=== PATIENT | female | born 1960 | race Caucasian/White ===

== ENCOUNTER → 2020-03-04 06:00 | Outpatient (REF) | payer MEDICAID, SELFPAY | LOC: OLS.ACW200 06:00 | PROVIDERS: Referring Provider Family Medicine; Visit Provider Family Medicine | DX: Z11.59 Encounter for screening for other viral diseases (principal) | CPT/HCPCS: 87635; U0003 ==

== ENCOUNTER → 2020-03-06 05:00 | Outpatient (REF) | payer MEDICAID, SELFPAY ==
[2020-03-06 09:00] LABS: Hematocrit 38.5 % (37-47); Hemoglobin 12.3 g/dL (12.0-15.0); Mean Corp Hgb Conc 31.9 g/dL (32-36); Mean Corpuscular Hgb 30.7 pg (27.0-32.0); Mean Platelet Vol. 10.4 fl (6.2-12.0); Platelet Count 404 K/mm3 (150-450); RBC Distribution Width SD 45.5 fl (35.1-43.9); Red Blood Count 4.01 M/mm3 (4.2-5.4); White Blood Count 5.2 K/mm3 (4.4-11.0)
[2020-03-06 09:27] LABS: ALB/GLOB Ratio 0.8 RATIO (0.9-2.4); AST(SGOT) 24 U/L (15-37); Alanine Aminotransfer ALT/SGPT 37 U/L (13-56); Albumin, Serum 3.3 g/dL (3.2-5.0); Alkaline Phosphatase 108 U/L (45-117); Anion Gap 6 (5-15); BUN 15 mg/dL (7-18); BUN/Creat Ratio 27.5 RATIO (10-20); Calcium,Total 9.3 mg/dL (8.5-10.1); Chloride 102 mmol/L (98-107); Creatinine, Serum 0.54 mg/dL (0.55-1.02); EST Glomerular Filtration Rate 121 mL/min (>60); Est Glom Filt Rate - Afr Amer 146 mL/min (>60); Globulin 3.9 g/dL (2.2-4.2); Glucose 80 mg/dL (74-106); Potassium 3.1 mmol/L (3.5-5.1); Protein, Total 7.2 g/dL (6.4-8.2); Sodium Level 141 mmol/L (136-145); Thyroid Stim Hormone (TSH) 1.04 uIU/mL (0.358-3.74)
[2020-03-06 09:42] LABS: Vitamin D,25 Hydroxy 32.1 ng/mL
== END ==
LOC: OLS.ACW200 05:00
PROVIDERS: PCP Family Medicine; Referring Provider Family Medicine; Visit Provider Family Medicine
DX: S06.300D Unspecified focal traumatic brain injury without loss of consciousness, subsequent encounter (principal); W19.XXXD Unspecified fall, subsequent encounter
CPT/HCPCS: 36415; 80053; 82306; 83735; 84443; 85027

== ENCOUNTER → 2020-04-04 10:57 | Outpatient (REF) | payer MEDICAID, SELFPAY | LOC: OLS.ACW100 10:57 | PROVIDERS: PCP Family Medicine; Visit Provider Family Medicine | DX: Z03.818 Encounter for observation for suspected exposure to other biological agents ruled out (principal) | CPT/HCPCS: 87635; U0003 ==

== ENCOUNTER → 2020-04-10 11:47 | Outpatient (REF) | payer MEDICAID, SELFPAY | LOC: OLS.ACW100 11:47 | PROVIDERS: Referring Provider Family Medicine; Visit Provider Family Medicine | DX: Z03.818 Encounter for observation for suspected exposure to other biological agents ruled out (principal) | CPT/HCPCS: 87635; U0003 ==

== ENCOUNTER → 2020-05-28 12:50 | Outpatient (REF) | payer MEDICAID, SELFPAY | LOC: OLS.ACW100 12:50 | PROVIDERS: Referring Provider Family Medicine; Visit Provider Family Medicine | DX: Z03.818 Encounter for observation for suspected exposure to other biological agents ruled out (principal) | CPT/HCPCS: 87635; U0003 ==

== ENCOUNTER → 2020-08-05 10:00 | Outpatient (REF) | payer MEDICAID, SELFPAY ==
[2020-08-05 12:57] LABS: Cholesterol 204 mg/dL (200); High Density Lipoprotein 75 mg/dL; Triglycerides 98 mg/dL; Very Low Density Lipoprotein 20 mg/dL (5-40)
== END ==
LOC: OLS.ACW100 10:00
PROVIDERS: Referring Provider Family Medicine; Visit Provider Family Medicine
DX: I10 Essential (primary) hypertension (principal); G40.909 Epilepsy, unspecified, not intractable, without status epilepticus
CPT/HCPCS: 36415; 80061

== ENCOUNTER → 2020-08-15 05:00 | Outpatient (REF) | payer MEDICAID, SELFPAY ==
[2020-08-15 08:26] LABS: Cholesterol 145 mg/dL (200); High Density Lipoprotein 75 mg/dL; Triglycerides 92 mg/dL; Very Low Density Lipoprotein 18 mg/dL (5-40)
== END ==
LOC: OLS.ACW100 05:00
PROVIDERS: Referring Provider Family Medicine; Visit Provider Family Medicine
DX: S06.6X0D Traumatic subarachnoid hemorrhage without loss of consciousness, subsequent encounter (principal); W19.XXXD Unspecified fall, subsequent encounter
CPT/HCPCS: 36415; 80061

== ENCOUNTER → 2020-08-26 05:00 | Outpatient (REF) | payer MEDICAID, SELFPAY ==
[2020-08-26 07:43] LABS: Hematocrit 37.3 % (37-47); Hemoglobin 11.9 g/dL (12.0-15.0); Mean Corp Hgb Conc 31.9 g/dL (32-36); Mean Corpuscular Hgb 31.1 pg (27.0-32.0); Mean Corpuscular Volume 97.4 fL (81-99); Mean Platelet Vol. 9.9 fl (6.2-12.0); Platelet Count 375 K/mm3 (150-450); RBC Distribution Width CV 13.5 % (11.6-14.6); RBC Distribution Width SD 48.9 fl (35.1-43.9); Red Blood Count 3.83 M/mm3 (4.2-5.4); White Blood Count 7.3 K/mm3 (4.4-11.0)
[2020-08-26 08:17] LABS: ALB/GLOB Ratio 0.9 RATIO (0.9-2.4); AST(SGOT) 93 U/L (15-37); Alanine Aminotransfer ALT/SGPT 176 U/L (13-56); Albumin, Serum 3.2 g/dL (3.2-5.0); Alkaline Phosphatase 82 U/L (45-117); Anion Gap 4 (5-15); BUN 20 mg/dL (7-18); BUN/Creat Ratio 35.3 RATIO (10-20); Calcium,Total 9.1 mg/dL (8.5-10.1); Chloride 107 mmol/L (98-107); Creatinine, Serum 0.57 mg/dL (0.55-1.02); EST Glomerular Filtration Rate 115 mL/min (>60); Est Glom Filt Rate - Afr Amer 139 mL/min (>60); Globulin 3.7 g/dL (2.2-4.2); Glucose 102 mg/dL (74-106); Potassium 3.5 mmol/L (3.5-5.1); Protein, Total 6.9 g/dL (6.4-8.2); Sodium Level 143 mmol/L (136-145)
[2020-09-01 07:31] LABS: KEPPRA (LEVETIRACETAM) 15.3 ug/mL (10.0-40.0)
== END ==
LOC: OLS.ACW100 05:00
PROVIDERS: Referring Provider Family Medicine; Visit Provider Family Medicine
DX: S06.6X0D Traumatic subarachnoid hemorrhage without loss of consciousness, subsequent encounter (principal); W19.XXXD Unspecified fall, subsequent encounter
CPT/HCPCS: 36415; 80053; 80177; 85027

== ENCOUNTER → 2020-11-10 05:00 | Outpatient (REF) | payer MEDICAID, SELFPAY ==
[2020-11-10 08:16] LABS: Cholesterol 141 mg/dL (200); High Density Lipoprotein 67 mg/dL; Triglycerides 100 mg/dL; Very Low Density Lipoprotein 20 mg/dL (5-40)
== END ==
LOC: OLS.ACW100 05:00
PROVIDERS: Referring Provider Family Medicine; Visit Provider Family Medicine
DX: S06.6X0D Traumatic subarachnoid hemorrhage without loss of consciousness, subsequent encounter (principal); W19.XXXD Unspecified fall, subsequent encounter
CPT/HCPCS: 36415; 80061

== ENCOUNTER → 2021-05-12 05:00 | Outpatient (REF) | payer MEDICAID, SELFPAY ==
[2021-05-12 08:58] LABS: Hematocrit 37.1 % (37-47); Hemoglobin 11.9 g/dL (12.0-15.0); Mean Corp Hgb Conc 32.1 g/dL (32-36); Mean Corpuscular Hgb 30.4 pg (27.0-32.0); Mean Corpuscular Volume 94.9 fL (81-99); Mean Platelet Vol. 10.3 fl (6.2-12.0); Platelet Count 368 K/mm3 (150-450); RBC Distribution Width CV 12.8 % (11.6-14.6); RBC Distribution Width SD 44.1 fl (35.1-43.9); Red Blood Count 3.91 M/mm3 (4.2-5.4); White Blood Count 6.6 K/mm3 (4.4-11.0)
[2021-05-12 09:22] LABS: Vitamin D,25 Hydroxy 33.3 ng/mL
[2021-05-12 09:26] LABS: ALB/GLOB Ratio 0.6 RATIO (0.9-2.4); AST(SGOT) 50 U/L (15-37); Alanine Aminotransfer ALT/SGPT 87 U/L (13-56); Albumin, Serum 2.6 g/dL (3.2-5.0); Alkaline Phosphatase 100 U/L (45-117); Anion Gap 5 (5-15); BUN 15 mg/dL (7-18); BUN/Creat Ratio 30.3 RATIO (10-20); Bilirubin, Direct 0.11 mg/dL (0.00-0.30); Chloride 103 mmol/L (98-107); Cholesterol 107 mg/dL (200); EST Glomerular Filtration Rate 134 mL/min (>60); Est Glom Filt Rate - Afr Amer 162 mL/min (>60); Globulin 4.3 g/dL (2.2-4.2); Glucose 91 mg/dL (74-106); High Density Lipoprotein 58 mg/dL; Magnesium 1.8 mg/dL (1.6-2.6); Potassium 3.3 mmol/L (3.5-5.1); Protein, Total 6.9 g/dL (6.4-8.2); Sodium Level 138 mmol/L (136-145); Thyroid Stim Hormone (TSH) 1.01 uIU/mL (0.358-3.74); Triglycerides 54 mg/dL; Very Low Density Lipoprotein 11 mg/dL (5-40)
[2021-05-14 14:10] LABS: Lamotrigine (Lamictal) Level 7.3 ug/mL (2.0-20.0)
== END ==
LOC: OLS.ACW100 05:00
PROVIDERS: Visit Provider Family Medicine
DX: S06.6X0D Traumatic subarachnoid hemorrhage without loss of consciousness, subsequent encounter (principal); W19.XXXD Unspecified fall, subsequent encounter
CPT/HCPCS: 36415; 80053; 80061; 82248; 82306; 82542; 83735; 84443; 85027

== ENCOUNTER → 2021-09-03 | Outpatient (REF) | payer MEDICARE, MEDICAID, SELFPAY ==
[2021-09-03 09:22] LABS: Hematocrit 37.1 % (37-47); Hemoglobin 12.4 g/dL (12.0-15.0); Mean Corp Hgb Conc 33.4 g/dL (32-36); Mean Corpuscular Hgb 30.9 pg (27.0-32.0); Mean Corpuscular Volume 92.5 fL (81-99); Mean Platelet Vol. 10.5 fl (6.2-12.0); Platelet Count 401 K/mm3 (150-450); RBC Distribution Width CV 13.2 % (11.6-14.6); RBC Distribution Width SD 45.2 fl (35.1-43.9); Red Blood Count 4.01 M/mm3 (4.2-5.4); White Blood Count 7.5 K/mm3 (4.4-11.0)
[2021-09-03 09:47] LABS: AST(SGOT) 26 U/L (15-37); Alanine Aminotransfer ALT/SGPT 33 U/L (13-56); Albumin, Serum 3.1 g/dL (3.2-5.0); Alkaline Phosphatase 101 U/L (45-117); Anion Gap 7 (5-15); BUN 14 mg/dL (7-18); BUN/Creat Ratio 27.3 RATIO (10-20); Calcium,Total 9.1 mg/dL (8.5-10.1); Chloride 104 mmol/L (98-107); Cholesterol 125 mg/dL (200); Creatinine, Serum 0.51 mg/dL (0.55-1.02); EST Glomerular Filtration Rate 129 mL/min (>60); Est Glom Filt Rate - Afr Amer 156 mL/min (>60); Globulin 4.2 g/dL (2.2-4.2); Glucose 99 mg/dL (74-106); High Density Lipoprotein 60 mg/dL; Potassium 3.5 mmol/L (3.5-5.1); Protein, Total 7.3 g/dL (6.4-8.2); Sodium Level 139 mmol/L (136-145); Triglycerides 65 mg/dL; Very Low Density Lipoprotein 13 mg/dL (5-40)
== END | disposition home or self-care (01) ==
LOC: OLS.ACW100 04:00
PROVIDERS: Visit Provider Family Medicine
DX: S06.300D Unspecified focal traumatic brain injury without loss of consciousness, subsequent encounter (principal); S06.6X0D Traumatic subarachnoid hemorrhage without loss of consciousness, subsequent encounter; W19.XXXD Unspecified fall, subsequent encounter
CPT/HCPCS: 36415; 80048; 80061; 80076; 85027

== ENCOUNTER → 2021-11-12 | Outpatient (REF) | payer MEDICARE, MEDICAID, SELFPAY ==
[2021-11-17 17:07] LABS: KEPPRA (LEVETIRACETAM) 32.5 ug/mL (10.0-40.0)
[2021-11-18 08:45] LABS: Lamotrigine (Lamictal) Level 8.7 ug/mL (2.0-20.0)
== END | disposition home or self-care (01) ==
LOC: OLS.ACW100 05:00
PROVIDERS: Visit Provider Family Medicine
DX: G40.909 Epilepsy, unspecified, not intractable, without status epilepticus (principal); F32.9 Major depressive disorder, single episode, unspecified; S06.300D Unspecified focal traumatic brain injury without loss of consciousness, subsequent encounter; S06.6X0D Traumatic subarachnoid hemorrhage without loss of consciousness, subsequent encounter; W19.XXXD Unspecified fall, subsequent encounter
CPT/HCPCS: 36415; 80177; 82542

== ENCOUNTER → 2022-02-04 | Outpatient (REF) | payer MEDICARE, MEDICAID, SELFPAY ==
[2022-02-04 10:23] LABS: Hematocrit 34.9 % (37-47); Hemoglobin 11.2 g/dL (12.0-15.0); Mean Corp Hgb Conc 32.1 g/dL (32-36); Mean Corpuscular Hgb 29.8 pg (27.0-32.0); Mean Corpuscular Volume 92.8 fL (81-99); Mean Platelet Vol. 10.7 fl (6.2-12.0); Platelet Count 384 K/mm3 (150-450); RBC Distribution Width CV 14.2 % (11.6-14.6); RBC Distribution Width SD 48.2 fl (35.1-43.9); Red Blood Count 3.76 M/mm3 (4.2-5.4); White Blood Count 7.2 K/mm3 (4.4-11.0)
[2022-02-04 10:59] LABS: Vitamin D,25 Hydroxy 33.1 ng/mL
[2022-02-04 11:17] LABS: ALB/GLOB Ratio 0.7 RATIO (0.9-2.4); AST(SGOT) 26 U/L (15-37); Alanine Aminotransfer ALT/SGPT 34 U/L (13-56); Albumin, Serum 2.8 g/dL (3.2-5.0); Alkaline Phosphatase 92 U/L (45-117); Anion Gap 8 (5-15); BUN 13 mg/dL (7-18); BUN/Creat Ratio 26.2 RATIO (10-20); Bilirubin, Direct 0.09 mg/dL (0.00-0.30); Calcium,Total 9.1 mg/dL (8.5-10.1); Chloride 105 mmol/L (98-107); Cholesterol 113 mg/dL (200); EST Glomerular Filtration Rate 134 mL/min (>60); Est Glom Filt Rate - Afr Amer 162 mL/min (>60); Globulin 4.2 g/dL (2.2-4.2); Glucose 88 mg/dL (74-106); High Density Lipoprotein 52 mg/dL; Potassium 3.4 mmol/L (3.5-5.1); Sodium Level 142 mmol/L (136-145); Triglycerides 76 mg/dL; Very Low Density Lipoprotein 15 mg/dL (5-40)
== END ==
LOC: OLS.ACW100 05:30
PROVIDERS: Visit Provider Family Medicine
DX: S06.300D Unspecified focal traumatic brain injury without loss of consciousness, subsequent encounter (principal); S06.6X0D Traumatic subarachnoid hemorrhage without loss of consciousness, subsequent encounter; E55.9 Vitamin D deficiency, unspecified; Z79.899 Other long term (current) drug therapy; W19.XXXD Unspecified fall, subsequent encounter
CPT/HCPCS: 36415; 80053; 80061; 82248; 82306; 85027

== ENCOUNTER → 2022-05-17 | Outpatient (REF) | payer MEDICARE, MEDICAID, SELFPAY ==
[2022-05-19 18:07] LABS: KEPPRA (LEVETIRACETAM) 35.7 ug/mL (10.0-40.0)
[2022-05-19 20:14] LABS: Lamotrigine (Lamictal) Level 11.3 ug/mL (2.0-20.0)
== END ==
LOC: OLS.ACW100 05:00
PROVIDERS: Visit Provider Family Medicine
DX: S06.6X0D Traumatic subarachnoid hemorrhage without loss of consciousness, subsequent encounter (principal); W19.XXXD Unspecified fall, subsequent encounter
CPT/HCPCS: 36415; 80177; 82542

== ENCOUNTER → 2022-06-29 | Outpatient (REF) | payer MEDICARE, MEDICAID, SELFPAY ==
[2022-06-29 09:54] LABS: Hematocrit 32.8 % (37-47); Hemoglobin 10.5 g/dL (12.0-15.0); Mean Corpuscular Hgb 29.7 pg (27.0-32.0); Mean Corpuscular Volume 92.7 fL (81-99); Mean Platelet Vol. 10.4 fl (6.2-12.0); Platelet Count 503 K/mm3 (150-450); RBC Distribution Width CV 14.6 % (11.6-14.6); Red Blood Count 3.54 M/mm3 (4.2-5.4); White Blood Count 15.8 K/mm3 (4.4-11.0)
[2022-06-29 10:02] LABS: Anion Gap 9 (5-15); BUN 7 mg/dL (7-18); BUN/Creat Ratio 12.3 RATIO (10-20); Calcium,Total 8.8 mg/dL (8.5-10.1); Chloride 103 mmol/L (98-107); Creatinine, Serum 0.57 mg/dL (0.55-1.02); EST Glomerular Filtration Rate 114 mL/min (>60); Est Glom Filt Rate - Afr Amer 138 mL/min (>60); Glucose 125 mg/dL (74-106); Potassium 3.5 mmol/L (3.5-5.1); Sodium Level 141 mmol/L (136-145)
== END ==
LOC: OLS.ACW100 07:50
PROVIDERS: Visit Provider Family Medicine
DX: S06.300A Unspecified focal traumatic brain injury without loss of consciousness, initial encounter (principal); S06.6X0A Traumatic subarachnoid hemorrhage without loss of consciousness, initial encounter; W19.XXXA Unspecified fall, initial encounter
CPT/HCPCS: 36415; 80048; 85027

== ENCOUNTER → 2022-07-05 | Outpatient (REF) | payer MEDICARE, MEDICAID, SELFPAY ==
[2022-07-05 09:42] LABS: Hematocrit 37.6 % (37-47); Hemoglobin 11.7 g/dL (12.0-15.0); Mean Corp Hgb Conc 31.1 g/dL (32-36); Mean Corpuscular Hgb 29.3 pg (27.0-32.0); Mean Platelet Vol. 9.7 fl (6.2-12.0); Platelet Count 618 K/mm3 (150-450); RBC Distribution Width CV 14.5 % (11.6-14.6); RBC Distribution Width SD 50.4 fl (35.1-43.9); White Blood Count 7.9 K/mm3 (4.4-11.0)
[2022-07-05 10:00] LABS: BUN 12 mg/dL (7-18); BUN/Creat Ratio 18.8 RATIO (10-20); Calcium,Total 9.4 mg/dL (8.5-10.1); Creatinine, Serum 0.64 mg/dL (0.55-1.02); EST Glomerular Filtration Rate 99 mL/min (>60); Est Glom Filt Rate - Afr Amer 120 mL/min (>60); Glucose 109 mg/dL (74-106)
[2022-07-05 10:01] LABS: Anion Gap 10 (5-15); Chloride 100 mmol/L (98-107); Sodium Level 139 mmol/L (136-145)
== END ==
LOC: OLS.ACW100 05:00
PROVIDERS: Visit Provider Family Medicine
DX: S06.300A Unspecified focal traumatic brain injury without loss of consciousness, initial encounter (principal); S06.6X0A Traumatic subarachnoid hemorrhage without loss of consciousness, initial encounter; W19.XXXA Unspecified fall, initial encounter
CPT/HCPCS: 36415; 80048; 85027

== ENCOUNTER → 2022-07-17 | Outpatient (REF) | payer MEDICARE, MEDICAID, SELFPAY ==
[2022-07-20 17:07] LABS: KEPPRA (LEVETIRACETAM) 29.6 ug/mL (10.0-40.0)
[2022-07-21 16:49] LABS: Lamotrigine (Lamictal) Level 10.4 ug/mL (2.0-20.0)
== END ==
LOC: OLS.ACW100 08:55
PROVIDERS: Visit Provider Family Medicine
DX: G40.309 Generalized idiopathic epilepsy and epileptic syndromes, not intractable, without status epilepticus (principal); F25.9 Schizoaffective disorder, unspecified; S06.300D Unspecified focal traumatic brain injury without loss of consciousness, subsequent encounter; S06.6X0D Traumatic subarachnoid hemorrhage without loss of consciousness, subsequent encounter; W19.XXXD Unspecified fall, subsequent encounter
CPT/HCPCS: 36415; 80177; 82542

== ENCOUNTER → 2022-08-09 | Outpatient (REF) | payer MEDICARE, MEDICAID, SELFPAY ==
[2022-08-09 07:42] LABS: Anion Gap 10 (5-15); BUN 12 mg/dL (7-18); BUN/Creat Ratio 21.1 RATIO (10-20); Calcium,Total 9.1 mg/dL (8.5-10.1); Chloride 100 mmol/L (98-107); Creatinine, Serum 0.57 mg/dL (0.55-1.02); EST Glomerular Filtration Rate 114 mL/min (>60); Est Glom Filt Rate - Afr Amer 138 mL/min (>60); Glucose 103 mg/dL (74-106); Potassium 3.3 mmol/L (3.5-5.1); Sodium Level 140 mmol/L (136-145)
== END ==
LOC: OLS.ACW100 05:00
PROVIDERS: Visit Provider Family Medicine
DX: S06.300D Unspecified focal traumatic brain injury without loss of consciousness, subsequent encounter (principal); I69 Sequelae of cerebrovascular disease; M62.81 Muscle weakness (generalized); W19.XXXD Unspecified fall, subsequent encounter
CPT/HCPCS: 36415; 80048

== ENCOUNTER → 2022-11-04 | Outpatient (REF) | payer MEDICARE, MEDICAID, SELFPAY ==
[2022-11-04 08:26] LABS: Hematocrit 37.2 % (37-47); Hemoglobin 11.4 g/dL (12.0-15.0); Mean Corp Hgb Conc 30.6 g/dL (32-36); Mean Corpuscular Hgb 29.3 pg (27.0-32.0); Mean Corpuscular Volume 95.6 fL (81-99); Mean Platelet Vol. 10.2 fl (6.2-12.0); Platelet Count 486 K/mm3 (150-450); RBC Distribution Width SD 52.7 fl (35.1-43.9); Red Blood Count 3.89 M/mm3 (4.2-5.4); White Blood Count 8.7 K/mm3 (4.4-11.0)
[2022-11-04 08:35] LABS: ALB/GLOB Ratio 0.6 RATIO (0.9-2.4); AST(SGOT) 20 U/L (15-37); Alanine Aminotransfer ALT/SGPT 22 U/L (13-56); Albumin, Serum 2.9 g/dL (3.2-5.0); Alkaline Phosphatase 94 U/L (45-117); Anion Gap 6 (5-15); BUN 13 mg/dL (7-18); BUN/Creat Ratio 19.7 RATIO (10-20); Chloride 106 mmol/L (98-107); Cholesterol 121 mg/dL (200); Creatinine, Serum 0.66 mg/dL (0.55-1.02); EST Glomerular Filtration Rate 96 mL/min (>60); Est Glom Filt Rate - Afr Amer 116 mL/min (>60); Globulin 4.7 g/dL (2.2-4.2); Glucose 93 mg/dL (74-106); High Density Lipoprotein 66 mg/dL; Potassium 3.2 mmol/L (3.5-5.1); Protein, Total 7.6 g/dL (6.4-8.2); Sodium Level 143 mmol/L (136-145); Triglycerides 59 mg/dL; Very Low Density Lipoprotein 12 mg/dL (5-40)
== END ==
LOC: OLS.ACW100 05:00
PROVIDERS: Visit Provider Family Medicine
DX: S06.300D Unspecified focal traumatic brain injury without loss of consciousness, subsequent encounter (principal); R41.841 Cognitive communication deficit; R27.8 Other lack of coordination; Z79.899 Other long term (current) drug therapy; W19.XXXD Unspecified fall, subsequent encounter
CPT/HCPCS: 36415; 80053; 80061; 85027

== ENCOUNTER → 2023-01-14 | Outpatient (REF) | payer MEDICARE, MEDICAID, SELFPAY ==
[2023-01-18 14:09] LABS: KEPPRA (LEVETIRACETAM) 34.6 ug/mL (10.0-40.0); Lamotrigine (Lamictal) Level 10.3 ug/mL (2.0-20.0)
== END ==
LOC: OLS.ACW100 05:00
PROVIDERS: Visit Provider Family Medicine
DX: G40.309 Generalized idiopathic epilepsy and epileptic syndromes, not intractable, without status epilepticus (principal); F25.9 Schizoaffective disorder, unspecified
CPT/HCPCS: 36415; 80177; 82542

== ENCOUNTER → 2023-01-31 | Outpatient (REF) | payer MEDICARE, MEDICAID, SELFPAY ==
[2023-01-31 09:38] LABS: Hematocrit 35.6 % (37-47); Hemoglobin 10.8 g/dL (12.0-15.0); Mean Corp Hgb Conc 30.3 g/dL (32-36); Mean Corpuscular Hgb 28.9 pg (27.0-32.0); Mean Corpuscular Volume 95.2 fL (81-99); Mean Platelet Vol. 9.7 fl (6.2-12.0); POSITIVE COUNT YES; Platelet Count 862 K/mm3 (150-450); RBC Distribution Width CV 14.1 % (11.6-14.6); RBC Distribution Width SD 49.2 fl (35.1-43.9); Red Blood Count 3.74 M/mm3 (4.2-5.4); White Blood Count 15.9 K/mm3 (4.4-11.0)
[2023-01-31 09:47] LABS: Scan Indicated on CBC? Y/N YES- FLAGS NOTED
[2023-01-31 09:55] LABS: ALB/GLOB Ratio 0.4 RATIO (0.9-2.4); AST(SGOT) 17 U/L (15-37); Alanine Aminotransfer ALT/SGPT 11 U/L (13-56); Albumin, Serum 2.5 g/dL (3.2-5.0); Alkaline Phosphatase 102 U/L (45-117); Anion Gap 9 (5-15); BUN 11 mg/dL (7-18); BUN/Creat Ratio 13.7 RATIO (10-20); Calcium,Total 9.6 mg/dL (8.5-10.1); Chloride 103 mmol/L (98-107); EST Glomerular Filtration Rate 76 mL/min (>60); Est Glom Filt Rate - Afr Amer 92 mL/min (>60); Globulin 6.3 g/dL (2.2-4.2); Glucose 139 mg/dL (74-106); Potassium 3.3 mmol/L (3.5-5.1); Protein, Total 8.8 g/dL (6.4-8.2); Sodium Level 141 mmol/L (136-145)
[2023-01-31 16:51] LABS: Color, Urine Yellow (Yellow); Glucose, Dipstick Normal (Normal); Ketone-Dipstick 5 mg/dl (Negative); Leukocyte Esterase-Dipstick 500 /ul (Negative); Nitrite-Dipstick Negative (Negative); Occult Blood-Urine 150 /ul (Negative); Protein-Dipstick 100 mg/dl (Negative); Urine Bilirubin Dipstick Negative (Negative); Urine Clarity Cloudy (Clear); Urine Urobilinogen Normal (Normal); Urine pH 6.5 (5.0 - 8.0)
[2023-01-31 16:52] LABS: Absolute Lymphocyte Count 1.84 X10^3/uL (0.83-4.51); Absolute Neutrophil Count 13.7 X10^3/uL (2.0-7.7); Basophil# 0.06 X10^3/uL; Basophil% 0.4 % (0-1); Eosinophil# 0.02 X10^3/uL; Eosinophils% 0.1 % (0-5); Hematocrit 35.4 % (37-47); Hemoglobin 10.9 g/dL (12.0-15.0); Lymphocyte # 1.84 X10^3/ul (0.83-4.51); Lymphocyte % 10.9 % (19-41); Mean Corp Hgb Conc 30.8 g/dL (32-36); Mean Corpuscular Hgb 28.3 pg (27.0-32.0); Mean Corpuscular Volume 91.9 fL (81-99); Mean Platelet Vol. 9.1 fl (6.2-12.0); Monocyte# 1.19 X10^3/uL; NRBC Flagged by Analyzer 0 % (0-5); Neutrophil # 13.67 X10^3/uL (2.7-7.7); Neutrophil % 80.7 % (47-70); POSITIVE COUNT YES; RBC Distribution Width SD 47.3 fl (35.1-43.9); Red Blood Count 3.85 M/mm3 (4.2-5.4); White Blood Count 16.9 K/mm3 (4.4-11.0)
[2023-01-31 16:55] LABS: International Normalized Ratio 1.7; Prothrombin Time (Protime)PT. 20.1 SECONDS (11.7-14.9)
[2023-01-31 16:56] LABS: Partial Thromboplast Time 42.3 Seconds (24.1-36.2)
[2023-01-31 17:00] LABS: Platelet Count 889 K/mm3 (150-450)
[2023-02-01 13:15] LABS: Pathologist Review Reviewed
[2023-02-01 13:21] LABS: Pathologist Review Reviewed
[2023-02-02 11:09] LABS: KEPPRA (LEVETIRACETAM) 51.3 ug/mL (10.0-40.0)
== END ==
LOC: OLS.ACW100 05:00
DX: D50.0 Iron deficiency anemia secondary to blood loss (chronic) (principal); E78.5 Hyperlipidemia, unspecified; G40.909 Epilepsy, unspecified, not intractable, without status epilepticus; R41.82 Altered mental status, unspecified; Z79.01 Long term (current) use of anticoagulants
CPT/HCPCS: 36415; 80053; 80177; 81002; 85025; 85027; 85610; 85730; 87077; 87086; 87088; 87186